=== PATIENT | male | born 1995 | race Caucasian/White ===

== ENCOUNTER 2022-05-24 14:31 | Emergency (ER) | payer OTHER ==
[~2022-05-24] VITALS: Ht 182.9 cm; Wt 88.6 kg
[2022-05-24] MEDS ORDERED: BENZONATATE 100MG CAPSULE PO ONE (17:15)
[2022-05-24] MEDS ORDERED: BENZ200C70 PO ×2 (17:16→17:18)
[2022-05-24] MEDS ORDERED: ACETAMINOPHEN 500 MG TAB PO ONE (17:35)
[2022-05-24] MEDS ORDERED: IBUPROFEN 800 MG TAB PO ONE (18:30)
[2022-05-24 18:54] VITALS: BP 138/78
== END 2022-05-24 18:58 | disposition home or self-care (01) ==
LOC: M ED 14:31
DX: J09.X2 Influenza due to identified novel influenza A virus with other respiratory manifestations (principal); J06.9 Acute upper respiratory infection, unspecified; F17.200 Nicotine dependence, unspecified, uncomplicated